=== PATIENT | female | born 1985 | race Caucasian/White ===

== ENCOUNTER 2023-02-25 07:38 | Outpatient (CLI) | payer OTHER, SELFPAY | END 2023-02-25 07:39 | disposition home or self-care (01) | LOC: NFLDREF 02-26 07:00 | PROVIDERS: PCP Family Medicine; Referring Provider Family Medicine; Visit Provider Family Medicine | DX: Z00.00 Encounter for general adult medical examination without abnormal findings (principal); Z13.6 Encounter for screening for cardiovascular disorders | CPT/HCPCS: 80053; 80061 ==

== ENCOUNTER 2024-02-02 07:43 | Outpatient (CLI) | payer OTHER, SELFPAY ==
--- NOTE | 2024-02-02 07:45 | MM_ITS ---
Patient: PARKER LIMON Facility:?[facility] Patient ID:?[id number] Site Patient ID:?[id number] Site :?1985 Study:?XRay-Breast Bilateral 3D W/CAD-02/02/2024 8:21:46 AM Ordering Physician:Ivy Final Report: DIAGNOSTIC BILATERAL BREAST MAMMOGRAM WITH COMPUTER-AIDED DETECTION AND TOMOSYNTHESIS RIGHT BREAST ULTRASOUND CLINICAL HISTORY: RIGHT breast lump. COMPARISON: None. TECHNIQUE: Digital BILATERAL mammogram in 4 projections with computer-aided detection. Tomosynthesis was used in this interpretation. Real-time ultrasound imaging of RIGHT breast with imaging documentation. BREAST COMPOSITION: The breasts are heterogeneously dense, which may obscure small masses. FINDINGS: 3D CC/MLO BILATERAL mammogram images submitted. No suspicious masses or architectural distortion. No suspicious calcifications or adenopathy. Targeted RIGHT breast ultrasound performed at 11 o`clock 6 cm from the nipple. Normal fibroglandular tissue without fibrocystic change or mass. IMPRESSION: No suspicious findings. RECOMMENDATIONS: Age-appropriate screening mammography. BI-RADS Category 2: Benign Results and recommendations discussed with the patient. A lay language report of this examination will be provided to the patient. Dictated by De Dolan MD @ 02/02/2024 8:42:08 AM/CRL:samuel PT/Dictated by: De Dolan MD @ 02/02/2024 8:42:00 AM Signed by:Jer Dolan MD @02/02/2024 11:22:51 AM (Electronic Signature)
--- OUTSIDE RECORDS SUMMARY | 2024-02-02 07:45 | XMS_ITS | Encounter Summary ---
Author Name Unknown Organization [facility] Address [address] [place] [address] Care Team Providers Care Mixing Machine Operator Name Role Phone Adrienne Montejo MD Primary Care Provider [phone] Encounter Details Date Type Department Care Team (Late st Contact Info) Description 10/20/2018 Refill Order [facility] 401 Otolaryngology 401 [facility] [place], [place] [phone] Dariel Cazares MD [address] [place], [place] [phone] Social History Tobacco Use Types Packs/Day Years Used Date Smoking Tobacco: Never Smokeless Tobacco: Never Alcohol Use Standard Drinks/Week Comments Yes 0 (1 standard drink = 0.6 oz pur e alcohol) 2-3 beer, wine, liquor Sex and Gender Information Value Date Recorded Sex Assigned at Not on file Gender Identity Not on file Sexual Orientation Not on file documented as of this encounter Plan of Treatment Upcoming Encounters Date Type Department Care Team (Late st Contact Info) Description 08/18/2024 3:30 PM PRODUCTION PLANNING MANAGER Appointment [facility] Audiology 401 [place], [place] [phone] Marie Javier AU.D. [address] [place], [place] [phone] 08/18/2024 4:00 PM PRODUCTION PLANNING MANAGER Appointment Specialty Center 401 Otolaryngology 401 [facility] [place] [address] Dariel Cazares MD [address] [place], [place] [phone] documented as of this encounter Visit Diagnoses Diagnosis Encounter for long-term (current) use of medications- Primary Encounter for long-term (current) use of other medications documented in this encounter Care Teams Mixing Machine Operator Relationship Specialty Start Date End Date Adrienne Montejo MD [address] [place] [address] PCP - General Family Practice 09/23/14 documented as of this encounter
--- OUTSIDE RECORDS SUMMARY | 2024-02-02 07:45 | XMS_ITS | Encounter Summary ---
Author Name Unknown Organization [facility] Address [address] [place] [address] Care Team Providers Care Creative Writing Professor Name Role Phone Adrienne Montejo MD Primary Care Provider [phone] Encounter Details Date Type Department Care Team (Late st Contact Info) Description 03/25/2012 Correspondence External to External, [place] [address] IMMUNZATION RECORD Social History Tobacco Use Types Packs/Day Years Used Date Smoking Tobacco: Never Smokeless Tobacco: Never Alcohol Use Standard Drinks/Week Comments Not Asked 0 (1 standard drink = 0.6 oz pur e alcohol) Sex and Gender Information Value Date Recorded Sex Assigned at Not on file Gender Identity Not on file Sexual Orientation Not on file documented as of this encounter Progress Notes * External, Provider - 03/25/2012 12:00 AM CDT documented in this encounter Plan of Treatment Upcoming Encounters Date Type Department Care Team (Late st Contact Info) Description 08/18/2024 3:30 PM ECONOMIC DEVELOPMENT DIRECTOR Appointment [facility] Audiology 401 [facility]. [place], [place] [phone] Marie Javier AU.D. 401 [place] [address] 08/18/2024 4:00 PM ECONOMIC DEVELOPMENT DIRECTOR Appointment Specialty Center 401 Otolaryngology 401 [facility]. [place], [place] [phone] Dariel Cazares MD 401 [place] [address] documented as of this encounter Visit Diagnoses Not on filedocumented in this encounter Care Teams Creative Writing Professor Relationship Specialty Start Date End Date Adrienne Montejo MD [address] [place] [address] PCP - General Family Practice 09/23/14 documented as of this encounter
--- OUTSIDE RECORDS SUMMARY | 2024-02-02 07:45 | XMS_ITS | Encounter Summary ---
Author Name Unknown Organization [facility] Address [address] [place] [address] Care Team Providers Care Bottle Tester Name Role Phone Adrienne Montejo MD Primary Care Provider [phone] Encounter Details Date Type Department Care Team (Late Contact Info) Description 12/08/2015 Correspondence [facility] Radiology [address] [place] [address] Radiology, Provider MRI SAFETY SHEET AND COMPATIBILITY FORM Social History Tobacco Use Types Packs/Day Years [...] Encounters Date Type Department Care Team (Late Contact Info) Description 08/18/2024 3:30 PM JTAC Appointment [facility] Audiology 401 [facility] [place] [address] Marie Javier AU.D. 401 [place] [address] 08/18/2024 4:00 PM JTAC Appointment Specialty Center 401 Otolaryngology 401 [facility] [place] [address] Dariel Cazares MD 401 [place] [address] documented as of this encounter Visit Diagnoses Not on filedocumented in this encounter Care Teams Bottle Tester Relationship Specialty Start Date End Date Adrienne Montejo MD [address] [place] [address] PCP - General Family Practice 09/23/14 documented as of this encounter
--- OUTSIDE RECORDS SUMMARY | 2024-02-02 07:45 | XMS_ITS | Encounter Summary ---
Author Name Unknown Organization [facility] Address [address] [address] Care Team Providers Care Gas Pit Worker Name Role Phone Adrienne Montejo MD Primary Care Provider [phone] Encounter Details Date Type Department Care Team (Late st Contact Info) Description 02/19/2017 Correspondence None No Primary/Referring, Phy PRE SERVICE NOTICE PAW Social History Tobacco Use Types Packs/Day Years [...] st Contact Info) Description 08/18/2024 3:30 PM BELLY ROLLER Appointment [facility] Audiology 401 [facility] [place] [address] Marie Javier AU.D. 401 [place] [address] 08/18/2024 4:00 PM BELLY ROLLER Appointment Specialty Center 401 Otolaryngology 401 [facility] [place] [address] Dariel Cazares MD [address] [place] [address] documented as of this encounter Visit Diagnoses Not on filedocumented in this encounter Care Teams Gas Pit Worker Relationship Specialty Start Date End Date Adirenne Montejo MD [address] [place] [address] PCP - General Family Practice 09/23/14 documented as of this encounter
--- OUTSIDE RECORDS SUMMARY | 2024-02-02 07:45 | XMS_ITS | Encounter Summary ---
Author Name Unknown Organization [facility] Address [address] [place] [address] Care Team Providers Care Md Physician Dermatologist Name Role Phone Adrienne Montejo MD Primary Care Provider [phone] Reason for Visit * Reason Comments [facility] Encounter Details Date Type Department Care Team (Late st Contact Info) Description 06/09/2017 Nurse Triage Careline [address] [place], [place] [address] Unassigned, Provider [address] [place] [address] [facility] Social History Tobacco Use Types Packs/Day Years Used Date Smoking Tobacco: Never Smokeless Tobacco: Never Alcohol Use Standard Drinks/Week Comments Yes 0 (1 standard drink = 0.6 oz pur e alcohol) 2-3 beer, wine, liquor Sex and Gender Information Value Date Recorded Sex Assigned at Not on file Gender Identity Not on file Sexual Orientation Not on file documented as of this encounter Nursing Notes * Zoya Branham RN - 06/09/2017 10:12 PM CDT Reason for Disposition ??? Taking water pill (i.e., diuretic) or heart medication (e.g., digoxin) Protocols used: HEART RATE AND HEARTBEAT [id number] * Zoya Branham RN - 06/09/2017 9:42 PM CDT Clinician actions requested: FRIEDA concern only- NO follow up needed Next steps: If patient not able to get online appointment she will call clinic Verified patient identity using 3 identifiers. Yes, with patient Situation/Background Last evening felt a couple times a heart fluttering feeling. This has happenedbefore and lasts for a few seconds. Then this morning and throughout the day I only notice it when I was not distracted by something else. When still or quiet then I notice it. I am on a diuretic formeniere's disease and have no BP problems. I have been on the diuretic since November this year. No fatigue. I feel fine otherwise. No chest pain of difficulty breathing. Denies dizziness or lightheadedness. Patient states she HR has been running in the low 60's and is regular. Reviewed with patient pertinent medical history Meniere's disease, otherwise healthy per patient. Reviewed with patient pertinent medications Diazide. Allergic:Azithromycin 10:[address] Natali Fernandez [place] head control clerk and consulted. Per Dr Fernandez, patient can be seen in clinic tomorrow. Called patient back and given Dr Fernandez' recommendation to be seen tomorrow in the clinic. Patient agrees with and is comfortable with plan. She will make appointment now online. She will call back to make appointment if none available online. Advised that CareLine is available 07/04 [phone] if you have any questions or need to speak with a nurse. * Benito Lopez - 06/09/2017 9:40 PM CDT Which care system or clinic is the patient normally seen at? [facility]. Situation: Medical:Pt is c/o heart flutters Plan:Call transferred directly to CareLine nurse. documented in this encounter Plan of Treatment Upcoming Encounters Date Type Department Care Team (Late st Contact Info) Description 08/18/2024 3:30 PM VP RESEARCH Appointment [facility] Audiology [address] [facility] [place] [address] Marie Javier AU.D. 401 [place] [address] 08/18/2024 4:00 PM VP RESEARCH Appointment Specialty Center [address] [place] [address]. [place], [place] [phone] Dariel Cazares MD [address] [place], [place] [phone] documented as of this encounter Visit Diagnoses Not on filedocumented in this encounter Care Teams Md Physician Dermatologist Relationship Specialty Start Date End Date Adrienne Montejo MD [address] [facility] [place] [address] PCP - General Family Practice 09/23/14 documented as of this encounter
--- OUTSIDE RECORDS SUMMARY | 2024-02-02 07:45 | XMS_ITS | Encounter Summary ---
Author Name Unknown Organization [facility] Address [address] [place] [address] Care Team Providers Care Electrical Designer Drafter Name Role Phone No Ref-Primary, Physician Primary Care Provider Gladys Valverde MD Unavailable [phone] Encounter Details Date Type Department Care Team (Late st Contact Info) Description 12/15/[address] [facility] [address] [facility] 4th [place] [address] Tiarra Campbell LPN Social History Tobacco Use Types Packs/Day Years Used Date Smoking Tobacco: Never Assessed Sex and Gender Information Value Date Recorded Sex Assigned at Not on file Gender Identity Not on file Sexual Orientation Not on file COVID-19 Exposure Response Date Recorded In the last month, have you been in contact with someone who was confirmed or suspected to have Coronavirus / COVID-19? No / Unsure 12/17/2019 11:14 AM CDT documented as of this encounter Plan of Treatment Not on file documented as of this encounter Visit Diagnoses Not on filedocumented in this encounter Care Teams Electrical Designer Drafter Relationship Specialty Start Date End Date No Ref-Primary, Physician PCP - General 10/13/19 Gladys Valverde MD [address] [place] [address] [address] [place] [address] Assigned Surgical Provider 07/07/20 documented as of this encounter
--- OUTSIDE RECORDS SUMMARY | 2024-02-02 07:45 | XMS_ITS | Encounter Summary ---
Author Name Unknown Organization [facility] Address [address] [place] [address] Care Team Providers Care Digital Project Coordinator Name Role Phone No Ref-Primary, Physician Primary Care Provider Gladys Valverde MD Unavailable [phone] Encounter Details Date Type Department Care Team (Late st Contact Info) Description 12/12/2020 MyC Medical Advice [facility] [address] 4[address] [place] [phone] Gladys Valverde MD [address] [address] Social History Tobacco Use Types Packs/Day Years Used Date Smoking Tobacco: Never Assessed Sex and Gender Information Value Date Recorded Sex Assigned at Not on file Gender Identity Not on file Sexual Orientation Not on file documented as of this encounter Plan of Treatment Not on file documented as of this encounter Visit Diagnoses Not on filedocumented in this encounter Care Teams Digital Project Coordinator Relationship Specialty Start Date End Date No Ref-Primary, Physician PCP - General 10/13/19 Gladys Valverde MD [address] [address] Assigned Surgical Provider 07/07/20 documented as of this encounter
--- OUTSIDE RECORDS SUMMARY | 2024-02-02 07:45 | XMS_ITS | Clinical Summary ---
Author Name Unknown Organization [facility] Address [address] [place] [address] Care Team Providers Care Waiter/Waitress Head Name Role Phone No Ref-Primary, Physician Primary Care Provider Allergies Active Allergy Reactions Criticality Noted Date Comments Azithromycin Dizziness 08/15/2009 Medications Medication Sig Dispensed Refills Start Date End Date Status Multiple Vitamins-Minerals (MULTIVITAMIN ADULT) TABS 11/13/2016 Active triamterene-HCTZ (DYAZIDE) 37.5-25 MG capsule TAKE 1 CAPSULE BY MOUTH DAILY 11/13/2016 Active Social History Tobacco Use Types Packs/Day Years Used Date Smoking Tobacco: Never Assessed Adolescent Education Answer Date Record ed Getting School Help Needed Not on file 06/07 Sex and Gender Information Value Date Recorded Sex Assigned at Not on file Gender Identity Not on file Sexual Orientation Not on file Last Filed Vital Signs Vital Sign Reading Time Taken Comments Blood Pressure - - Pulse - - Temperature - - Respiratory Rate - - Oxygen Saturation - - Inhaled Oxygen Concentration - - Weight 63.5 kg (140 lb) 12/17/2019 11:15 AM CDT Height 167.6 cm (5' 6) 12/17/2019 11:15 AM CDT Body Mass Index 22.6 12/17/2019 11:15 AM CDT Plan of Treatment Not on file Care Teams Waiter/Waitress Head Relationship Specialty Start Date End Date No Ref-Primary, Physician PCP - General 10/13/19
--- OUTSIDE RECORDS SUMMARY | 2024-02-02 07:45 | XMS_ITS | Encounter Summary ---
Author Name Unknown Organization [facility] Address [address] [place] [address] Care Team Providers Care Retanned Leather Roller Name Role Phone Adrienne Montejo MD Primary Care Provider [phone] Encounter Details Date Type Department Care Team (Late st Contact Info) Description 02/02/2019 Refill Order Specialty Center 401 Otolaryngology 401 [facility] [place], [place] [phone] Dariel Cazares MD 401 [place], [place] [phone] Social History Tobacco Use Types Packs/Day Years [...] st Contact Info) Description 08/18/2024 3:30 PM PREVENTIVE MEDICINE OFFICER Appointment [facility] Audiology 401 [place], [place] [phone] Marie Javier AU.D. [address] [place], [place] [phone] 08/18/2024 4:00 PM PREVENTIVE MEDICINE OFFICER Appointment Specialty Center 401 Otolaryngology 401 [facility] [place] [address] Dariel Cazares MD [address] [place], [place] [phone] documented as of this encounter Visit Diagnoses Diagnosis Encounter for long-term (current) use of medications- Primary Encounter for long-term (current) use of other medications documented in this encounter Care Teams Retanned Leather Roller Relationship Specialty Start Date End Date Adrienne Montejo MD [address] [place] [address] PCP - General Family Practice 09/23/14 documented as of this encounter
--- OUTSIDE RECORDS SUMMARY | 2024-02-02 07:45 | XMS_ITS | Clinical Summary ---
Author Name Unknown Organization [facility] Address [address] [place] [address] Care Team Providers Care Visual Coordinator Name Role Phone Adrienne Montejo MD Primary Care Provider [phone] Source Comments You are receiving this document as you are listed as the primary care provider,follow-up provider, or the patient has been referred to you for consultation.This is in compliance with the Medicare and[facility] EHR Incentive Program,which states Providers who transition their patient to another setting of careor provider of care or refers their patient to another provider of care shouldprovide summary care record for each transition of care or referral. [facility] Allergies Active Allergy Reactions Criticality Noted Date Comments Azithromycin Dizziness 03/20/2012 Medications Medication Sig Dispensed Refills Start Date End Date Status Sdirri-Ebtbdzsuk-Jnzg -Fish Oil ( + COMPLETE MULTI OR) Active OPZELURA 1.5 % cream Apply topically two times a day. 08/18/2023 Active clobetasol (TEMOVATE) 0.05 % cream Apply topically two times a day. 06/12/2023 Active Active Problems Problem Noted Date Diagnosed Date 12/13/2020 Currently in second trimester with unknown date of last menstrual period 12/13/2020 Fibrocystic breast changes of both breasts 05/19 Overview: Hx benign breast biopsy Cervical cancer screening 08/23/2016 Overview: 2012 NILM 2016 NILM ,neg HPV 31 y.o. Plan: Cotesting 08/2021 ; Pap test history Meniere disease Comments Yes Immunizations Name Administration Dates Next Due DT Ped 05/25/1991 DTP 06/30/1987, 6,03/15/1986, 986 Flu Vac (3+ yrs) 06/29/2010 Fluzone Qiv Multidose Vial 0 .25 (6-35 Mos) 06/30/2019,07/11/2018 HepA Adult (19+ yrs) 08/14/2009,01/06/2009 HepB Ped/Adol (0-18 yrs) 12/14/1996,06/22/1996,0 05/13/1996 IPV (Polio) 12/02/2008 Influenza IIV4 (Quadrivalent ) 0.5mL (38134) 06/10/2017,06/17/2016 JE (JE-VAX) 01/03/2009,12/09/2008,12/02/2008 MMR 05/13/1996,02/17/1987 MPSV4 (Menomune) 03/15/2004 OPV, Trivalent (Orimune or tOPV) 990,06/30/1987,07/11/1986, 986,01/13/1986 Rabies 01/27/2012, 2,07/27/2009, 009,01/06/2009,12/16/2008,12/09/2008 TB Skin Test (PPD) 12/02/2005,04/13/2004 Td (7+ yrs) 12/25/2018 Tdap 12/09/2008 Typhoid (Vivotif, Oral) 12/09/2008 Family History Medical History Relation Name Comments Stroke Maternal Grandfather Diabetes Maternal Grandmother Cancer, Breast Negative Family History Cancer, Colon Negative Family History Cataract Negative Family History Glaucoma Negative Family History Macular Degeneration Negative Family History Retinal Detachment Negative Family History Relation Name Status Comments Father Alive Mother Alive Maternal Grandfather Maternal Grandmother Paternal Grandfather Alive Paternal Grandmother Sister Alive Social History Tobacco Use Types Packs/Day Years Used Date Smoking Tobacco: Never Smokeless Tobacco: Never Alcohol Use Standard Drinks/Week Comments Yes 0 (1 standard drink = 0.6 oz pur e alcohol) 2-3 beer, wine, liquor Comments Yes Sex and Gender Information Value Date Recorded Sex Assigned at Not on file Gender Identity Not on file Sexual Orientation Not on file Last Filed Vital Signs Vital Sign Reading Time Taken Comments Blood Pressure 88/61 07/30/2019 8:29 AM WELDING MACHINE OPERATOR PLASMA ARC Pulse 86 07/30/2019 8:29 AM WELDING MACHINE OPERATOR PLASMA ARC Temperature 36.9 ??C (98.5 ??F) 07/30/2019 8:29 AM CS T Respiratory Rate 18 07/30/2019 8:29 AM WELDING MACHINE OPERATOR PLASMA ARC Oxygen Saturation - - Inhaled Oxygen Concentration - - Weight 63.5 kg (140 lb) 07/30/2019 8:29 AM WELDING MACHINE OPERATOR PLASMA ARC Height 167.6 cm (5' 6) 07/30/2019 8:29 AM WELDING MACHINE OPERATOR PLASMA ARC Body Mass Index 22.6 07/30/2019 8:29 AM WELDING MACHINE OPERATOR PLASMA ARC Plan of Treatment Upcoming Encounters Date Type Department Care Team (Late st Contact Info) Description 08/18/2024 3:30 PM WELDING MACHINE OPERATOR PLASMA ARC Appointment [facility] Specialty [place] [facility] [address] [place] [address]. [place], [place] [phone] Marie Javier AU.D. [address] [place] [phone] 08/18/2024 4:00 PM WELDING MACHINE OPERATOR PLASMA ARC Appointment Specialty Center [address] [place] [address] Dariel Cazares MD [address] [place], [place] [phone] Health Maintenance Due Date Last Done Comments Hep C Screening (Preventive Services) 1985 HIV Screening (Preventive Services) 2001 Adult Preventive Visit 05/19/2020 8, 08/19/2016, 11/24/2012 Cervical Cancer Screening 08/19/20212015, 11/24/2012, 11/24/2012 COVID-19 Vaccine ( season) 2023 06/01/2022, 07/22/2021, 01/09/2021, Additional history exists DTaP/Tdap/Td (9 - Tdap) 02/08/2031 02/09/20 21, 12/25/2018, 12/09/2008, Additional history exists Zoster/Shingles (1 of 2) 2035 HepB Completed 12/14/1996, 04/1996, 05/13/1996 MCV4 Aged Out 03/15/2004 No longer eligi ble based on patient's age to complete this topic IPV (Polio) Completed 12/02/2008, 04/16, 06/30/1987, Additional history exists HepA Completed 08/14/2009, 01/06/2009 Influenza Completed 07/01/2023, 06/16, 06/30/2021, Additional history exists HPV Vaccine Aged Out No longer eligi ble based on patient's age to complete this topic Hib Aged Out No longer eligi ble based on patient's age to complete this topic Pneumococcal Aged Out No longer eligi ble based on patient's age to complete this topic Procedures Procedure Name Priority Date/Time Associated Diagnosis Comments PAP TEST, ROUTINE Routine 08/19/2016 11: 13 AM WELDING MACHINE OPERATOR PLASMA ARC Screening for malignant neoplasm of cervix from Last 3 Months or Most Recently Relevant to Health Maintenance Results * Pap Test, Routine (08/19/2016 11:13 AM WELDING MACHINE OPERATOR PLASMA ARC) Cytology, Pap (NOTE) Road Crew Member Cytology Report Patient Name: MARIE LIMON Taken: 08/19/2016 Received: 08/19/2016 Reported: 08/27/2016 Physician(s): CLEOPATRA RANGEL ?Source of Specimen Pap Test, Routine Cervical/Endocervi catalina: ?Specimen Adequacy ?Satisfactory for evaluation. ??Endocervical component present. ? Final Cytologic Interpretation/Res ult NEGATIVE FOR INTRAEPITHELIAL LESION OR MALIGNANCY (NILM) ?? *Electronically Signed Out By JARRELL Grimm (ASCP)* JARRELL Grimm (ASCP) ? Pap Smear History Date of Last Menstrual Period: 08/09/2016 ?? Microscopic Description Microscopic examination is performed. [facility] Department of Pathology [address] [place] [id number] [facility] 08/19/2016 11:1 3 AM WELDING MACHINE OPERATOR PLASMA ARC 08/19/2016 6:15 PM WELDING MACHINE OPERATOR PLASMA ARC Cleopatra Rangel INSTRUCTIONAL TECHNOLOGY SPECIALIST, TELEPHOTO INSTALLER LAB_1 [facility] [phone] from Last 3 Months or Most Recently Relevant to Health Maintenance Care Teams Visual Coordinator Relationship Specialty Start Date End Date Adrienne Montejo MD [address] [place] [address] PCP - General Family Practice 09/23/14
--- OUTSIDE RECORDS SUMMARY | 2024-02-02 07:45 | XMS_ITS | Encounter Summary ---
Author Name Unknown Organization [facility] Address [address], [place] [address] Care Team Providers Care Barrel Filler Name Role Phone Adrienne Montejo MD Primary Care Provider [phone] Encounter Details Date Type Department Care Team (Late st Contact Info) Description 08/18/2012 Correspondence External to [facility] External, [place] [address] MEDICAL HISTORY Social History Tobacco Use Types Packs/Day Years [...] encounter Progress Notes * External, Provider - 08/18/2012 12:00 AM CST RTING LEAD documented in this encounter Plan of Treatment Upcoming Encounters Date Type Department Care Team (Late st Contact Info) Description 08/18/2024 3:30 PM REPORTING LEAD Appointment [facility] Audiology [address] [place] [address] Marie Javier AU.D. [address] [place] [address] 08/18/2024 4:00 PM REPORTING LEAD Appointment Specialty Center 401 Otolaryngology 401 [place] [address] Dariel Cazares MD [address] [place], [place] [phone] documented as of this encounter Visit Diagnoses Not on filedocumented in this encounter Care Teams Barrel Filler Relationship Specialty Start Date End Date Adrienne Montejo MD [address] [place] [address] PCP - General Family Practice 09/23/14 documented as of this encounter
--- OUTSIDE RECORDS SUMMARY | 2024-02-02 07:45 | XMS_ITS | Referral Summary ---
Author Name Unknown Organization [facility] Address [address] [place] [address] Care Team Providers Care Carrier Loader Name Role Phone No Ref-Primary, Physician Primary [...] of Treatment Not on file Care Teams Carrier Loader Relationship Specialty Start Date End Date No Ref-Primary, Physician PCP - General 10/13/19
--- OUTSIDE RECORDS SUMMARY | 2024-02-02 07:46 | XMS_ITS | Encounter Summary ---
Author Name Unknown Organization [facility] Address [address] [place] [address] Care Team Providers Care Store Lead Name Role Phone No Ref-Primary, Physician Primary Care Provider Gladys Valverde MD Unavailable [phone] Reason for Visit * Reason Onset Date Comments Referral 09/28/2019 DX: Meniere's Di sease Appointment 10/13/2019 New Pt Appt requ ested for Meniere's Disease Encounter Details Date Type Department Care Team (Late st Contact Info) Description 09/28/2019 Telephone [facility] Ear Nose and Throat [address] [facility] [address] 4[address] [place] [address] Gladys Valverde MD [address] [facility] [address] [place] [address] Referral (DX: Meniere's Disease); Appointment (New Pt Appt requested for Meniere's Disease) Social History Tobacco Use Types Packs/Day Years Used Date Smoking Tobacco: Never Assessed Sex and Gender Information Value Date Recorded Sex Assigned at Not on file Gender Identity Not on file Sexual Orientation Not on file documented as of this encounter Miscellaneous Notes * Telephone Encounter - Dorinda Tobias - 10/13/2019 1:02 PM CST [facility] Phone Message May a detailed message be left on voicemail: yes Reason for Call: Other: Please call Pt to schedule New Pt Appt for Meniere's Disease please Action Taken: Message routed to: [facility] ([facility] ENT CUTTER * Telephone Encounter - Gilbert Martinez - 10/07/2019 2:11 PM CST Referral and recs sent to [facility], original copy in community services coordinator rightfax folder. Recs are also in Care Everywhere- Amay CUTTER * Telephone Encounter - Gilma Bills - 09/28/2019 5:10 PM CST [facility] Call Center Phone Message May a detailed message be left on voicemail: yes Reason for Call: Other: DX: Meniere's Disease and being referred by Dr. Dariel Cazares at [facility]. Patient is contact Dr. Cazares to have referral and records faxed to [phone]. Also, patient stated she would like to be scheduled with Dr. Gladys Valverde. Please follow up with patient when referral and records are received. Thank you! Action Taken: Message routed to: [facility] ([facility]): Clinic Coord ENT Eye Dental CUTTER documented in this encounter Plan of Treatment Not on file documented as of this encounter Visit Diagnoses Not on filedocumented in this encounter Care Teams Store Lead Relationship Specialty Start Date End Date No Ref-Primary, Physician PCP - General 10/13/19 Gladys Valverde MD [address] [place] [address] [address] [place] [address] Assigned Surgical Provider 07/07/20 documented as of this encounter
--- OUTSIDE RECORDS SUMMARY | 2024-02-02 07:46 | XMS_ITS | Encounter Summary ---
Author Name Unknown Organization [facility] Address [address] [place] [address] Care Team Providers Care Carton Waxing Machine Operator Name Role Phone No Ref-Primary, Physician Primary Care Provider Gladys Valverde MD Unavailable [phone] Encounter Details Date Type Department Care Team (Late st Contact Info) Description 11/17/2019 MyC Medical Advice [facility] Ear Nose and Throat [address] [facility] [address] 4[address] [place] [address] Gladys Valverde MD [address] [place] [address] Social History Tobacco Use Types Packs/Day Years Used Date Smoking Tobacco: Never Assessed Sex and Gender Information Value Date Recorded Sex Assigned at Not on file Gender Identity Not on file Sexual Orientation Not on file documented as of this encounter Plan of Treatment Not on file documented as of this encounter Visit Diagnoses Not on filedocumented in this encounter Care Teams Carton Waxing Machine Operator Relationship Specialty Start Date End Date No Ref-Primary, Physician PCP - General 10/13/19 Gladys Valverde MD [address] [address] Assigned Surgical Provider 07/07/20 documented as of this encounter
--- NOTE | 2024-02-02 08:15 | US_ITS ---
Patient: PARKER LIMON Facility:?[facility] Patient ID:?[id number] Site Patient ID:?[id number] Site :?1985 Study:?US-Breast Right DSM TO READ-02/02/2024 8:15:03 AM Ordering Physician:?KATIA BENJAMIN Final Report: PLEASE SEE BILATERAL DIAGNOSTIC MAMMOGRAM OF SAME DAY. CRL:samuel PT/Dictated by: De Dolan MD @ 02/02/2024 8:42:00 AM Signed by:?De Dolan MD @02/02/2024 11:22:49 AM (Electronic Signature)
== END 2024-02-02 07:44 | disposition home or self-care (01) ==
LOC: MAMMO 07:43
PROVIDERS: PCP Family Medicine; Visit Provider Family Medicine
DX: N63.10 Unspecified lump in the right breast, unspecified quadrant (principal); R92.2 Inconclusive mammogram
CPT/HCPCS: 76642; 77066; G0279

== ENCOUNTER 2024-03-08 07:52 | Outpatient (CLI) | payer OTHER, SELFPAY ==
--- OUTSIDE RECORDS SUMMARY | 2024-03-10 05:44 | XMS_ITS | Encounter Summary ---
Author Organization [facility] Address [address] [place] [address] Care Team Providers Care Equipment Engineer Name Role Phone No Ref-Primary, Physician Primary Care Provider Gladys Valverde MD Unavailable [phone] Encounter Details Date Type Department Care Team (Late st Contact Info) Description 12/12/2020 MyC Medical Advice [facility] [address] [place] [address] Gladys Valverde MD [address] [address] Social History Tobacco Use Types [...] on filedocumented in this encounter Care Teams Equipment Engineer Relationship Specialty Start Date End Date No Ref-Primary, Physician PCP - General 10/13/19 Gladys Valverde MD [address] [address] Assigned Surgical Provider 07/07/20 documented as of this encounter
--- OUTSIDE RECORDS SUMMARY | 2024-03-10 05:44 | XMS_ITS | Encounter Summary ---
Author Organization [facility] Address [address] [place] [address] Care Team Providers Care Scholastic Aptitude Test Grader Name Role Phone No Ref-Primary, Physician Primary Care Provider Gladys Valverde MD Unavailable [phone] Encounter Details Date Type Department Care Team (Late st Contact Info) Description 11/17/2019 [facility] Medical Advice [facility] Ear Nose and Throat [address] [facility] [address] [place] [address] Gladys Valverde MD [address] [address] Social History Tobacco Use Types [...] on filedocumented in this encounter Care Teams Scholastic Aptitude Test Grader Relationship Specialty Start Date End Date No Ref-Primary, Physician PCP - General 10/13/19 Gladys Valverde MD [address] [address] Assigned Surgical Provider 07/07/20 documented as of this encounter
--- OUTSIDE RECORDS SUMMARY | 2024-03-10 05:44 | XMS_ITS | Referral Summary ---
Author Organization [facility] Address [address] [place] [address] Care Team Providers Care Platinum Smith Name Role Phone No Ref-Primary, Physician Primary [...] of Treatment Not on file Care Teams Platinum Smith Relationship Specialty Start Date End Date No Ref-Primary, Physician PCP - General 10/13/19
--- OUTSIDE RECORDS SUMMARY | 2024-03-10 05:44 | XMS_ITS | Encounter Summary ---
Author Organization [facility] Address [address] [place] [address] Care Team Providers Care Aerial Crop Duster Name Role Phone Adrienne Montejo MD Primary Care Provider [phone] Encounter Details Date Type Department Care Team (Late st Contact Info) Description 08/18/2012 Correspondence External to External, [place] [address] MEDICAL HISTORY Social History Tobacco Use Types [...] External, Provider - 08/18/2012 12:00 AM CST AUDITOR documented in this encounter Plan of Treatment Upcoming Encounters Date Type Department Care Team (Late st Contact Info) Description 08/18/2024 3:30 PM QA AUDITOR Appointment [facility] Audiology [address] [place] [address] Marie Javier AU.D. 401 [place] [address] 08/18/2024 4:00 PM QA AUDITOR Appointment [facility] 401 Otolaryngology [address] [facility]. [place], [place] [phone] Dariel Cazares MD 401 [place], [place] [phone] documented as of this encounter Visit Diagnoses Not on filedocumented in this encounter Care Teams Aerial Crop Duster Relationship Specialty Start Date End Date Adrienne Montejo MD [address] [place] [address] PCP - General Family Practice 09/23/14 documented as of this encounter
--- OUTSIDE RECORDS SUMMARY | 2024-03-10 05:44 | XMS_ITS | Encounter Summary ---
Author Organization [facility] Address [address], [place] [address] Care Team Providers Care Truck Technician Name Role Phone Adrienne Montejo MD Primary Care Provider [phone] Encounter Details Date Type Department Care Team (Late st Contact Info) Description 03/25/2012 Correspondence External to External, [place] [address] IMMUNZATION RECORD Social History Tobacco Use Types [...] st Contact Info) Description 08/18/2024 3:30 PM SANDWICH MAKER Appointment [facility] Audiology [address] [place] [address]. [place], [place] [phone] Marie Javier AU.D. [address] [place] [address] 08/18/2024 4:00 PM SANDWICH MAKER Appointment [facility] 401 Otolaryngology 401 [facility]. [place], [place] [phone] Dariel Cazares MD 401 [place], [place] [phone] documented as of this encounter Visit Diagnoses Not on filedocumented in this encounter Care Teams Truck Technician Relationship Specialty Start Date End Date Adrienne Montejo MD [address] [place] [address] PCP - General Family Practice 09/23/14 documented as of this encounter
--- OUTSIDE RECORDS SUMMARY | 2024-03-10 05:44 | XMS_ITS | Clinical Summary ---
Author Organization [facility] Address [address] [place] [address] Care Team Providers Care Road Packer Operator Name Role Phone Adrienne Montejo MD Primary Care Provider [phone] Source Comments You are receiving this document as you are listed as the primary care provider,follow-up provider, or the patient has been referred to you for consultation.This is in compliance with the Medicare and[facility] Hospital[facility] EHR Incentive Program,which states Providers who transition their patient to another setting of careor provider of care or refers their patient to another provider of care shouldprovide summary care record for each transition of care or referral. [facility] Allergies Active Allergy Reactions Criticality Noted Date Comments Azithromycin Dizziness 03/20/2012 Medications Medication Sig Dispensed Refills Start Date End Date Status Egrfey-Ldfzarnfv-Pxsv -Fish Oil ( + COMPLETE MULTI OR) [...] (Polio) 12/02/2008 Influenza IIV4 (Quadrivalent ) 0.5mL (86676) 06/10/2017,06/17/2016 JE (JE-VAX) 01/03/2009,12/09/2008,12/02/2008 MMR 05/13/1996,02/17/1987 MPSV4 [...] Comments Blood Pressure 88/61 07/30/2019 8:29 AM LAST CODE STRIPER Pulse 86 07/30/2019 8:29 AM LAST CODE STRIPER Temperature 36.9 ??C (98.5 ??F) 07/30/2019 8:29 AM CS T Respiratory Rate 18 07/30/2019 8:29 AM LAST CODE STRIPER Oxygen Saturation - - Inhaled Oxygen Concentration - - Weight 63.5 kg (140 lb) 07/30/2019 8:29 AM LAST CODE STRIPER Height 167.6 cm (5' 6) 07/30/2019 8:29 AM LAST CODE STRIPER Body Mass Index 22.6 07/30/2019 8:29 AM LAST CODE STRIPER Plan of Treatment Upcoming Encounters Date Type Department Care Team (Late st Contact Info) Description 08/18/2024 3:30 PM LAST CODE STRIPER Appointment [facility] Audiology [address] [place] [phone] Marie Javier AU.D. [address] [place] [phone] 08/18/2024 4:00 PM LAST CODE STRIPER Appointment [facility] [address] [place] [phone] Dariel Cazares MD 401 [place], [place] [phone] Health Maintenance Due Date Last Done Comments [...] TEST, ROUTINE Routine 08/19/2016 11: 13 AM LAST CODE STRIPER Screening for malignant neoplasm of cervix from Last 3 Months or Most Recently Relevant to Health Maintenance Results * Pap Test, Routine (08/19/2016 11:13 AM LAST CODE STRIPER) Cytology, Pap (NOTE) Sterile Supply Technician Cytology Report Patient Name: MARIE LIMON Taken: [...] ?? Microscopic Description Microscopic examination is performed. [facility] Department of Pathology [address] [place] [address] ??[id number] [facility] 08/19/2016 11:1 3 AM LAST CODE STRIPER 08/19/2016 6:15 PM LAST CODE STRIPER Cleopatra Rangel ELECTRONIC EQUIPMENT INSTALLER, ADDICTIONS COUNSELOR ASSISTANT LAB_1 [facility] [phone] from Last 3 Months or Most Recently Relevant to Health Maintenance Care Teams Road Packer Operator Relationship Specialty Start Date End Date Adrienne Montejo MD [address] [place] [address] PCP - General Family Practice 09/23/14
--- OUTSIDE RECORDS SUMMARY | 2024-03-10 05:44 | XMS_ITS | Encounter Summary ---
Author Organization [facility] Address [address] [place] [address] Care Team Providers Care Soa Architect Name Role Phone No Ref-Primary, Physician Primary Care Provider Gladys Valverde MD Unavailable [phone] Encounter Details Date Type Department Care Team (Late st Contact Info) Description 12/15/2019 [facility] Medical Advice [facility] Ear Nose and Throat [address] [address] Tiarra Campbell LPN Social History Tobacco [...] on filedocumented in this encounter Care Teams Soa Architect Relationship Specialty Start Date End Date No Ref-Primary, Physician PCP - General 10/13/19 Gladys Valverde MD 420 [facility] [address] [place], [place] [phone] Assigned Surgical Provider 07/07/20 documented as of this encounter
--- OUTSIDE RECORDS SUMMARY | 2024-03-10 05:44 | XMS_ITS | Encounter Summary ---
Author Organization [facility] Address [address] [address] Care Team Providers Care Cruller Maker Machine Name Role Phone Adrienne Montejo MD Primary Care Provider [phone] Encounter Details Date Type Department Care Team (Late Contact Info) Description 12/08/2015 Correspondence [facility] Radiology [address] [place] [address] Radiology, Provider MRI SAFETY SHEET AND COMPATIBILITY [...] st Contact Info) Description 08/18/2024 3:30 PM PATIENT SUPPORT TECH Appointment [facility] Audiology [address] [facility] [place] [address] Marie Javier AU.D. 401 [place] [address] 08/18/2024 4:00 PM PATIENT SUPPORT TECH Appointment [facility] 401 Otolaryngology [address] [facility] [place], [place] [phone] Dariel Cazares MD [address] [place] [address] documented as of this encounter Visit Diagnoses Not on filedocumented in this encounter Care Teams Cruller Maker Machine Relationship Specialty Start Date End Date Adrienne Montejo MD [address] [place] [address] PCP - General Family Practice 09/23/14 documented as of this encounter
--- OUTSIDE RECORDS SUMMARY | 2024-03-10 05:44 | XMS_ITS | Encounter Summary ---
Author Organization [facility] Address [address] [place] [address] Care Team Providers Care Heat Welder Plastics Name Role Phone Adrienne Montejo MD Primary Care Provider Reason for Visit * Reason Comments FLUTTERING HEART Encounter Details Date Type Department Care Team (Late st Contact Info) Description 06/09/2017 Nurse Triage Careline [address] [place], [place] [address] Unassigned, Provider [address] [place] [address] [facility] Social History Tobacco Use Types [...] digoxin) Protocols used: HEART RATE AND HEARTBEAT [id number] * Zoya Branham RN - 06/09/2017 9:42 [...] 10:[address] Natali Fernandez [place] nuclear station operator and consulted. Per Dr Fernandez, patient can be seen in clinic tomorrow. Called patient back and given Dr Fernandez' recommendation to be seen tomorrow in the clinic. Patient agrees with and is comfortable with plan. She will make appointment now online. She will call back to make appointment if none available online. Advised that CareLine is available 07/04 [phone] if you have any questions or need to speak with a nurse. * Benito Lopez - 06/09/2017 9:40 PM CDT Which care system or clinic is the patient normally seen at? [facility] Clinics. Situation: Medical:Pt is c/o heart flutters Plan:Call transferred directly to CareLine nurse. documented in this encounter Plan of Treatment Upcoming Encounters Date Type Department Care Team (Late st Contact Info) Description 08/18/2024 3:30 PM BOILERMAKING SUPERVISOR Appointment [facility] Audiology [address] [employer] [place] [address] Marie Javier AU.D. 401 [place] [address] 08/18/2024 4:00 PM BOILERMAKING SUPERVISOR Appointment [facility]ty [facility] [address] [place] [address]. [place], [place] [phone] Dariel Cazares MD 401 [place], [place] [phone] documented as of this encounter Visit Diagnoses Not on filedocumented in this encounter Care Teams Heat Welder Plastics Relationship Specialty Start Date End Date Adrienne Montejo MD [address] [place] [address] PCP - General Family Practice 09/23/14 documented as of this encounter
--- OUTSIDE RECORDS SUMMARY | 2024-03-10 05:44 | XMS_ITS | Encounter Summary ---
Author Organization [facility] Address [address], [place] [address] Care Team Providers Care Cyber Security Systems Engineer Name Role Phone Adrienne Montejo MD Primary Care Provider [phone] Encounter Details Date Type Department Care Team (Late st Contact Info) Description 02/02/2019 Refill Order [facility] 401 Otolaryngology 401 [place], [place] [phone] Dariel Cazares MD [address] [place], [place] [phone] Social History Tobacco Use Types Packs/Day Years [...] st Contact Info) Description 08/18/2024 3:30 PM RIVET SPINNER Appointment [facility] Audiology [address] [place], [place] [phone] Marie Javier AU.D. [address] [place], [place] [phone] 08/18/2024 4:00 PM RIVET SPINNER Appointment [facility]ty Center 401 Otolaryngology [address] [facility] [place], [place] [phone] Dariel Cazares MD [address] [place] [address] documented as of this encounter Visit Diagnoses Diagnosis Encounter for long-term (current) use of medications- Primary Encounter for long-term (current) use of other medications documented in this encounter Care Teams Cyber Security Systems Engineer Relationship Specialty Start Date End Date Adrienne Montejo MD [address] [place] [address] PCP - General Family Practice 09/23/14 documented as of this encounter
--- OUTSIDE RECORDS SUMMARY | 2024-03-10 05:44 | XMS_ITS | Encounter Summary ---
Author Organization [facility] Address [address], [place] [address] Care Team Providers Care Farmworker Vegetable Name Role Phone Adrienne Montejo MD Primary Care Provider [phone] Encounter Details Date Type Department Care Team (Late st Contact Info) Description 10/20/2018 Refill Order [facility] 401 Otolaryngology 401 [place], [place] [phone] Dariel Cazares MD [address] [place], [place] [phone] Social History Tobacco Use Types Packs/Day Years [...] st Contact Info) Description 08/18/2024 3:30 PM BRIM BUSTER Appointment [facility] Audiology [address] [place], [place] [phone] Marie Javier AU.D. [address] [place], [place] [phone] 08/18/2024 4:00 PM BRIM BUSTER Appointment Specialty Center 401 Otolaryngology 401 [facility] [place], [place] [phone] Dariel Cazares MD [address] [place] [address] documented as of this encounter Visit Diagnoses Diagnosis Encounter for long-term (current) use of medications- Primary Encounter for long-term (current) use of other medications documented in this encounter Care Teams Farmworker Vegetable Relationship Specialty Start Date End Date Adrienne Montejo MD [address] [place] [address] PCP - General Family Practice 09/23/14 documented as of this encounter
--- OUTSIDE RECORDS SUMMARY | 2024-03-10 05:44 | XMS_ITS | Encounter Summary ---
Author Organization [facility] Address [address], [place] [address] Care Team Providers Care Costume Design Teacher Name Role Phone Adrienne Montejo MD Primary Care Provider [phone] Encounter Details Date Type Department Care Team [...] st Contact Info) Description 08/18/2024 3:30 PM ACCOUNT GENERAL MANAGER Appointment [facility] Audiology [address] [place] [address] Marie Javier AU.D. [address] [place] [address] 08/18/2024 4:00 PM ACCOUNT GENERAL MANAGER Appointment Specialty Center 401 Otolaryngology [address] [place] [address] Dariel Cazares MD [address] [place] [address] documented as of this encounter Visit Diagnoses Not on filedocumented in this encounter Care Teams Costume Design Teacher Relationship Specialty Start Date End Date Adrienne Montejo MD [address] [place] [address] PCP - General Family Practice 09/23/14 documented as of this encounter
--- OUTSIDE RECORDS SUMMARY | 2024-03-10 05:44 | XMS_ITS | Clinical Summary ---
Author Organization [facility] Address [address] [place] [address] Care Team Providers Care Construction Safety Consultant Name Role Phone No Ref-Primary, Physician Primary [...] of Treatment Not on file Care Teams Construction Safety Consultant Relationship Specialty Start Date End Date No Ref-Primary, Physician PCP - General 10/13/19
--- OUTSIDE RECORDS SUMMARY | 2024-03-10 05:44 | XMS_ITS | Encounter Summary ---
Author Organization [facility] Address [address] [place] [address] Care Team Providers Care Grain Merchandising Manager Name Role Phone No Ref-Primary, Physician Primary Care Provider Gladys Valverde MD Unavailable [phone] Reason for Visit * Reason Onset Date Comments Referral 09/28/2019 DX: Meniere's Di sease Appointment 10/13/2019 New Pt Appt requ ested for Meniere's Disease Encounter Details Date Type Department Care Team (Late st Contact Info) Description 09/28/2019 Telephone [facility] Nose [facility] Th[facility]at [address] [facility] 4th [place] [address] Gladys Valverde MD [address] [address] Referral (DX: Meniere's Disease); Appointment (New [...] Message routed to: [facility] ([facility]): ENT HANDISE PLANNER * Telephone Encounter - Gilbert Martinez - 10/07/2019 2:11 PM CST Referral and recs sent to [facility], original copy in online content coordinator rightfax folder. Recs are also in Care Everywhere- Amay HANDISE PLANNER * Telephone Encounter - Gilma Bills - 09/28/2019 5:10 PM CST [facility] Call Center Phone Message May a detailed message be left on voicemail: yes Reason for Call: Other: DX: Meniere's Disease and being referred by Dr. Dariel Cazares at [facility]. Patient is contact Dr. Cazares to have referral and records faxed to [phone]. Also, patient stated she would like to be scheduled with Dr. Gladys Valverde. Please follow up with patient when referral and records are received. Thank you! Action Taken: Message routed to: [facility] ([facility]): Clinic Coord ENT Eye Dental HANDISE PLANNER documented in this encounter Plan of Treatment Not on file documented as of this encounter Visit Diagnoses Not on filedocumented in this encounter Care Teams Grain Merchandising Manager Relationship Specialty Start Date End Date No Ref-Primary, Physician PCP - General 10/13/19 Gladys Valverde MD [address] [place] [address] [address] [place] [address] Assigned Surgical Provider 07/07/20 documented as of this encounter
== END 2024-03-08 07:53 | disposition home or self-care (01) ==
LOC: NFLDREF 03-10 05:43
PROVIDERS: PCP Family Medicine; Referring Provider Family Medicine; Visit Provider Family Medicine
DX: H81.09 Meniere's disease, unspecified ear (principal); E78.5 Hyperlipidemia, unspecified
CPT/HCPCS: 80053; 80061; 84443

== ENCOUNTER 2024-03-31 16:22 | Emergency (ER) | payer OTHER, SELFPAY ==
[2024-03-31 16:30] VITALS: BP 113/70; PULSE 74; RESP 18; TEMP 36.6; O2SAT 99; BMI 26.6
--- NOTE | 2024-03-31 16:30 | ED_ITS ---
HPI - General Adult General Chief complaint: Unspecified Complaint, Adult Stated complaint: numbess L side of face Time Seen by Provider: 03/31/24 16:29 History of Present Illness HPI narrative: Reports left side facial numbness. Started at mouth now in cheek area. Had dull eye pain yesterday 38-year-old woman presenting to the emergency department with a concern of numbness in the left side of her face. She has not noticed any rashes. Does not have a loss of function. Was recommended to be evaluated in the emergency department. About a week and half ago had a sense of numbness somewhere between numb and tingling and feels like it is deep internal beginning just in the left side of the mental prominence. Today it seems to have progressed up to this zygoma. She has not noted any trauma here. She does note however that she has toddler indicating that she may have taken some bumps to the face. Has not noted any blisters. No recent fever. Was around somebody that got Bravo's palsy in the setting of COVID some weeks ago but otherwise she feels well. 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 She is not having any pain in her jaw. No neck issues. No lesions in her scalp. She says her face looks like herself in the mirror; normal. Does not get headaches. She did have some eye pain yesterday but this has resolved; as gestures it appears that this was bilateral. She think this was I strain from too much screen time. No diabetes or dyslipidemia Related Data Previous Rx's ?Medication ?Instructions ?Recorded nirmatrelvir 300 mg (150 mg See Rx Instructions PO .COMPLEX 04/23/24 x2)-ritonavir 100 mg tablet,dose #30 ea pack (Paxlovid) Allergies Allergy/AdvReac Type Severity Reaction Status Date / Time azithromycin Allergy Severe Dizziness Verified 03/11/24 09:49 Review of Systems Status of ROS: Reports: 6 or more systems reviewed and unremarkable except as noted in History and below [facility] Medical History Eczema ?L30.9 - Dermatitis, unspecified (ICD-10) Meniere's disease ?H81.09 - Meniere's disease, unspecified ear (ICD-10) Fibrocystic breast changes ?N60.19 - Diffuse cystic mastopathy of unspecified breast (ICD-10) Dyslipidemia ?E78.5 - Hyperlipidemia, unspecified (ICD-10) Chronic eczema of hand ?L30.9 - Dermatitis, unspecified (ICD-10) Asymmetrical sensorineural hearing loss ?H90.3 - Sensorineural hearing loss, bilateral (ICD-10) Surgical History Laceration of vagina with complication (04/23/21) ?S31.41XA - Laceration without foreign body of vagina and vulva, initial encounter (ICD-10) History of third molar tooth extraction (2000) ?K08.409 - Partial loss of teeth, unspecified cause, unspecified class (ICD- 10) History of removal of skin mole (2008) ?Z98.890 - Other specified postprocedural states (ICD-10) ?Z87.2 - Personal history of diseases of the skin and subcutaneous tissue (ICD-10) History of benign breast biopsy (2001) ?Z98.890 - Other specified postprocedural states (ICD-10) Family History Grandfather Diabetes Grandmother Diabetes Social History Narrative: . 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 Rare EtOH. No exercise. Nonsmoker What is your current living situation?: I presently have a place to live Problems where you live: no known problems In the past 12 months, utilities in danger of being shut off: no In the past 12 mos, have been you worried that your food would run out before you had money to buy more?: never true In the past 12 mos, the food you bought just didn't last and you didn't have money to buy more?: never true Smoking Status: Never smoker How often do you have a drink containing alcohol: never AUDIT-C Alcohol total score: 0 Non-prescribed substance use: denies use How often does anyone, including family, friends and others, physically hurt you : decline to answer How often does anyone, including family, friends and others, insult or talk down to you: decline to answer How often does anyone, including family, friends and others, threaten you with harm: decline to answer How often does anyone, including family, friends and others, scream or curse at you: decline to answer Little interest or pleasure in doing things: not at all Feeling down, depressed, or hopeless: not at all service: No Exam Narrative: Exam Narrative: Pleasant. NAD. Speaking fluidly. Cranial nerves 2-12 intact. There is no pain to palpation at the TMJ. Ear canals clear. No swellings about her face. Face generally symmetrical though subtly flattened left nasal labial fold versus the right. Oropharynx is unremarkable without swelling or tenderness to dental percussion. Dentition looks to be in good repair. Intact motor throughout her face. There is what looks like a recent pimple at the left inferior medial zygoma area. No surrounding swelling or inflammatory changes. Areas mentioned above subjectively appears to be stretching from the left mental prominence of to the left zygoma; just below this. Does not stretch over the bony jaw nor moved particularly medial toward the nose. Neck is supple without lymphadenopa thy. Full range of motion the neck. No swellings. Const: Vital Signs, click to edit/add: Vital Signs - 24 hr 03/31/24 16:30 Temperature 97.8 F Pulse Rate [Pulse Oximeter] 74 Respiratory Rate 18 Blood Pressure [Ri ght Upper Arm] 113/70 Pulse Oximetry 99 Oxygen Delivery Me thod Room Air Documenting provider has reviewed patient's vital signs: yes Course Vital Signs Vital signs: Initial Vital Signs Temperature 97.8 F 03/31/24 16:30 Temperature Source Temporal Artery Scan 03/31/24 16:30 Pulse Rate 74 03/31/24 16:30 Pulse Rhythm Regular 03/31/24 16:30 Respiratory Rate 18 03/31/24 16:30 Blood Pressure 113/70 03/31/24 16:30 Blood Pressure Mean 84 03/31/24 16:30 Blood Pressure Position Sitting 03/31/24 16:30 Pulse Oximetry 99 03/31/24 16:30 Oxygen Delivery Method Room Air 03/31/24 16:30 Vital Signs Temperature 97.8 F 03/31/24 16:30 Pulse Rate 74 03/31/24 16:30 Respiratory Rate 18 03/31/24 16:30 Blood Pressure 113/70 03/31/24 16:30 Pulse Oximetry 99 03/31/24 16:30 Oxygen Delivery Method Room Air 03/31/24 16:30 Temperature 97.8 F 03/31/24 16:30 Pulse Rate 74 03/31/24 16:30 Respiratory Rate 18 03/31/24 16:30 Blood Pressure 113/70 03/31/24 16:30 Pulse Oximetry 99 03/31/24 16:30 Oxygen Delivery Method Room Air 03/31/24 16:30 Medical Decision Making MDM Narrative Medical decision making narrative: I am not exactly sure what to make of this. Paresthesia that is very focused and of unclear etiology at this point. Will consult briefly with Neurology I think. Opinion upon consultation it is that this is likely peripheral issue. Unclear etiology though might be related to lesions as noted. See patient discharge plan discussion Medical Records Medical records reviewed: Yes I reviewed the patient's medical records Discharge Plan Discharge Clinical Impression: Paresthesia Patient Disposition: Home, Self-Care Condition: Stable Additional Instructions: Outbreak of lesions/blisters may be explanation for what is involving here. It does appear to be a peripheral phenomenon as opposed to central. Be seen for marked spread of numbness or focal motor weakness. Prescriptions: No Action Paxlovid 300 mg (150 mg x 2)-100 mg tablets,dose pack See Rx Instructions PO .COMPLEX Qty: 30 0RF Rx Instructions: take TWO 150 mg tablets of nirmatrelvir with ONE 100 mg tablet of ritonavir twice daily for 5 days PO Follow Up/Referrals: Mercedez Alarcon MD [Primary Care Provider] - Stand Alone Forms: [employer] Info Instructions
--- OUTSIDE RECORDS SUMMARY | 2024-03-31 16:52 | XMS_ITS | Clinical Summary ---
Author Organization [facility] Address [address] [place] [address] Care Team Providers Care Coal Picker Name Role Phone Adrienne Montejo MD Primary Care Provider [phone] Source Comments You are receiving this document as you are listed as the primary care provider,follow-up provider, or the patient has been referred to you for consultation.This is in compliance with the Medicare and[facility] EHR Incentive Program,which states Providers who transition their patient to another setting of careor provider of care or refers their patient to another provider of care shouldprovide summary care record for each transition of care or referral. [email or web address] Allergies Active Allergy Reactions Criticality Noted Date Comments Azithromycin Dizziness 03/20/2012 Medications Medication Sig Dispensed Refills Start Date End Date Status Qvywyy-Znekafkpd-Yzym -Fish Oil ( + COMPLETE MULTI OR) [...] (Polio) 12/02/2008 Influenza IIV4 (Quadrivalent ) 0.5mL (13091) 06/10/2017,06/17/2016 JE (JE-VAX) 01/03/2009,12/09/2008,12/02/2008 MMR 05/13/1996,02/17/1987 MPSV4 [...] Comments Blood Pressure 88/61 07/30/2019 8:29 AM WOMEN'S STUDIES LECTURER Pulse 86 07/30/2019 8:29 AM WOMEN'S STUDIES LECTURER Temperature 36.9 ??C (98.5 ??F) 07/30/2019 8:29 AM CS T Respiratory Rate 18 07/30/2019 8:29 AM WOMEN'S STUDIES LECTURER Oxygen Saturation - - Inhaled Oxygen Concentration - - Weight 63.5 kg (140 lb) 07/30/2019 8:29 AM WOMEN'S STUDIES LECTURER Height 167.6 cm (5' 6) 07/30/2019 8:29 AM WOMEN'S STUDIES LECTURER Body Mass Index 22.6 07/30/2019 8:29 AM WOMEN'S STUDIES LECTURER Plan of Treatment Upcoming Encounters Date Type Department Care Team (Late st Contact Info) Description 08/18/2024 3:30 PM WOMEN'S STUDIES LECTURER [facility]ment [facility] [address] [place] [phone] Marie Javier AU.D. [address] [place] [phone] 08/18/2024 4:00 PM WOMEN'S STUDIES LECTURER Appointment [facility] [address] [place] [address] [phone] Dariel Cazares MD [address] [place], [place] [phone] Health Maintenance Due Date Last Done Comments Hep C Screening (Preventive Services) 1985 HIV Screening (Preventive Services) 2001 Adult Preventive Visit 05/19/2020 8, 08/19/2016, 11/24/2012 Cervical Cancer Screening 08/19/20212015, 11/24/2012, 11/24/2012 COVID-19 Vaccine ( season) 2023 06/01/2022, 07/22/2021, 01/09/2021, Additional history exists Influenza (#1) 2024 07/01/2023, 06/16, 06/30/2021, Additional history exists DTaP/Tdap/Td (9 - Tdap) 02/08/2031 02/09/20, 12/25/2018, 12/09/2008, Additional history exists Zoster/Shingles (1 of 2) 2035 HepB Completed 12/14/1996, 04/1996, 05/13/1996 MCV4 Aged Out 03/15/2004 No longer eligi ble based on patient's age to complete this topic IPV (Polio) Completed 12/02/2008, 04/16, 06/30/1987, Additional history exists HepA Completed 08/14/2009, 01/06/2009 HPV Vaccine Aged Out No longer eligi ble based on patient's age to complete this topic Hib Aged Out No longer eligi ble based on patient's age to complete this topic Pneumococcal Aged Out No longer eligi ble based on patient's age to complete this topic Procedures Procedure Name Priority Date/Time Associated Diagnosis Comments PAP TEST, ROUTINE Routine 08/19/2016 11: 13 AM WOMEN'S STUDIES LECTURER Screening for malignant neoplasm of cervix from Last 3 Months or Most Recently Relevant to Health Maintenance Results * Pap Test, Routine (08/19/2016 11:13 AM WOMEN'S STUDIES LECTURER) Cytology, Pap (NOTE) Cardroom Manager Cytology Report Patient Name: MARIE LIMON Taken: [...] ?? Microscopic Description Microscopic examination is performed. [facility] Department of Pathology [address] [place] [id number] [facility] 08/19/2016 11:1 3 AM WOMEN'S STUDIES LECTURER 08/19/2016 6:15 PM WOMEN'S STUDIES LECTURER Cleopatra Rangel HYDRAMATIC SPECIALIST, AUTOMOBILE INSURANCE CLAIM EXAMINER LAB_1 [facility] [phone] from Last 3 Months or Most Recently Relevant to Health Maintenance Care Teams Coal Picker Relationship Specialty Start Date End Date Adrienne Montejo MD [address] [address] PCP - General Family Practice 09/23/14
--- OUTSIDE RECORDS SUMMARY | 2024-03-31 16:52 | XMS_ITS | Encounter Summary ---
Author Organization [facility] Address [address], [place] [address] Care Team Providers Care Director Of Rehabilitative Services Name Role Phone Adrienne Montejo MD Primary Care Provider [phone] Encounter Details Date Type Department Care Team (Late st Contact Info) Description 02/02/2019 Refill Order [facility] 401 Otolaryngology 401 [place], [place] [phone] Dariel Cazares MD [address] [place], [place] [phone] Social History Tobacco Use Types Packs/Day Years [...] st Contact Info) Description 08/18/2024 3:30 PM CANDY BAR ATTENDANT Appointment [facility] Audiology [address] [place], [place] [phone] Marie Javier AU.D. [address] [place], [place] [phone] 08/18/2024 4:00 PM CANDY BAR ATTENDANT Appointment [facility]ty [facility] 401 Otolaryngology 401 [facility]. [phone] Dariel Cazares MD [address] [place] [address] documented as of this encounter Visit Diagnoses Diagnosis Encounter for long-term (current) use of medications- Primary Encounter for long-term (current) use of other medications documented in this encounter Care Teams Director Of Rehabilitative Services Relationship Specialty Start Date End Date Adrienne Montejo MD [address] [place] [address] PCP - General Family Practice 09/23/14 documented as of this encounter
--- OUTSIDE RECORDS SUMMARY | 2024-03-31 16:52 | XMS_ITS | Encounter Summary ---
Author Organization [facility] Address [address] [place] [address] Care Team Providers Care Teleprinter Installer Name Role Phone Adrienne Montejo MD Primary Care Provider [phone] Encounter Details Date Type Department Care Team (Late st Contact Info) Description 08/18/2012 Correspondence External to External, [place] [address] MEDICAL HISTORY Social History Tobacco Use Types [...] External, Provider - 08/18/2012 12:00 AM CST H MACHINE OPERATOR documented in this encounter Plan of Treatment Upcoming Encounters Date Type Department Care Team (Late st Contact Info) Description 08/18/2024 3:30 PM NOTCH MACHINE OPERATOR Appointment [facility] Audiology 401 [facility] [place] [address] Marie Javier AU.D. [address] [place] [address] 08/18/2024 4:00 PM NOTCH MACHINE OPERATOR Appointment Specialty Center 401 Otolaryngology 401 [facility] [place], [place] [phone] Dariel Cazares MD [address] [place], [place] [phone] documented as of this encounter Visit Diagnoses Not on filedocumented in this encounter Care Teams Teleprinter Installer Relationship Specialty Start Date End Date Adrinene Montejo MD [address] [place] [address] PCP - General Family Practice 09/23/14 documented as of this encounter
--- OUTSIDE RECORDS SUMMARY | 2024-03-31 16:52 | XMS_ITS | Encounter Summary ---
Author [facility] Address [address] [place] [address] Care Team Providers Care Tax Auditor Name Role Phone Adrienne Montejo MD Primary Care Provider [phone] Reason for Visit * Reason Comments [facility] Encounter Details Date Type Department Care Team (Late st Contact Info) Description 06/09/2017 Nurse Triage Careline [address] [place] [address] Unassigned, Provider [address] [place] [address] [facility] Social History Tobacco Use Types [...] digoxin) Protocols used: HEART RATE AND HEARTBEAT [id number] * Zoya Branham RN - 06/09/2017 9:42 [...] 10:[address] Natali Fernandez [place] sales representative consultant and consulted. Per Dr Fernandez, patient can be seen in clinic tomorrow. Called patient back and given Dr Fernandez' recommendation to be seen tomorrow in the clinic. Patient agrees with and is comfortable with plan. She will make appointment now online. She will call back to make appointment if none available online. Advised that CareLine is available 07/04 [phone] if you have any questions or need to speak with a nurse. * Benito Lopez - 06/09/2017 9:40 PM CDT Which care system or clinic is the patient normally seen at? [facility] Clinics. Situation: Medical:Pt is c/o heart flutters Plan:Call transferred directly to CareLine nurse. documented in this encounter Plan of Treatment Upcoming Encounters Date Type Department Care Team (Late st Contact Info) Description 08/18/2024 3:30 PM PAINTER BOTTOM Appointment Audiology [address] [facility] [place] [address] Marie Javier AU.D. [address] [place] [address] 08/18/2024 4:00 PM PAINTER BOTTOM Appointment [facility]ty [facility] [address] [place] [address]. [place], [place] [phone] Dariel Cazares MD [address] [place], [place] [phone] documented as of this encounter Visit Diagnoses Not on filedocumented in this encounter Care Teams Tax Auditor Relationship Specialty Start Date End Date Adrienne Montejo MD [address] [place] [address] PCP - General Family Practice 09/23/14 documented as of this encounter
--- OUTSIDE RECORDS SUMMARY | 2024-03-31 16:52 | XMS_ITS | Encounter Summary ---
Author Organization [facility] Address [address], [place] [address] Care Team Providers Care Superintendent Power Name Role Phone Adrienne Montejo MD Primary Care Provider [phone] Encounter Details Date Type Department Care Team [...] st Contact Info) Description 08/18/2024 3:30 PM TANK CAR LOADER Appointment [facility] Audiology 401 [facility] [place] [address] Marie Javier AU.D. [address] [place] [address] 08/18/2024 4:00 PM TANK CAR LOADER Appointment Specialty Center 401 Otolaryngology [address] [facility] [place] [address] Dariel Cazares MD [address] [place] [address] documented as of this encounter Visit Diagnoses Not on filedocumented in this encounter Care Teams Superintendent Power Relationship Specialty Start Date End Date Adrienne Montejo MD [address] [place] [address] PCP - General Family Practice 09/23/14 documented as of this encounter
--- OUTSIDE RECORDS SUMMARY | 2024-03-31 16:52 | XMS_ITS | Encounter Summary ---
Author Organization [facility] Address [address], [place] [address] Care Team Providers Care Hospitality Services Manager Name Role Phone Adrienne Montejo MD Primary Care Provider [phone] Encounter Details Date Type Department Care Team (Late st Contact Info) Description 10/20/2018 Refill Order [facility] 401 Otolaryngology 401 [place], [place] [phone] Dariel Cazares MD [address] [place], [place] [phone] Social History Tobacco Use Types Packs/Day Years [...] st Contact Info) Description 08/18/2024 3:30 PM BARK PEELER Appointment [facility] Audiology [address] [place], [place] [phone] Marie Javier AU.D. [address] [place], [place] [phone] 08/18/2024 4:00 PM BARK PEELER Appointment Specialty Center 401 Otolaryngology 401 [facility] [place], [place] [phone] Dariel Cazares MD [address] [place] [address] documented as of this encounter Visit Diagnoses Diagnosis Encounter for long-term (current) use of medications- Primary Encounter for long-term (current) use of other medications documented in this encounter Care Teams Hospitality Services Manager Relationship Specialty Start Date End Date Adrienne Montejo MD [address] [place] [address] PCP - General Family Practice 09/23/14 documented as of this encounter
--- OUTSIDE RECORDS SUMMARY | 2024-03-31 16:52 | XMS_ITS | Encounter Summary ---
Author Organization [facility] Address [address], [place] [address] Care Team Providers Care Latex Ribbon Machine Operator Name Role Phone Adrienne Montejo MD Primary Care Provider [phone] Encounter Details Date Type Department Care Team (Late Contact Info) Description 12/08/2015 Correspondence [facility] Radiology [address] [place] [address] Radiology, Provider MRI SAFETY SHEET AND COMPATIBILITY [...] st Contact Info) Description 08/18/2024 3:30 PM ASSISTANT CASINO SHIFT MANAGER Appointment [facility] Audiology 401 [facility] [place] [address] Marie Javier AU.D. [address] [place] [address] 08/18/2024 4:00 PM ASSISTANT CASINO SHIFT MANAGER Appointment Specialty Center 401 Otolaryngology 401 [facility]. [place], [place] [phone] Dariel Cazares MD [address] [place] [address] documented as of this encounter Visit Diagnoses Not on filedocumented in this encounter Care Teams Latex Ribbon Machine Operator Relationship Specialty Start Date End Date Adrienne Montejo MD [address] [place] [address] PCP - General Family Practice 09/23/14 documented as of this encounter
--- OUTSIDE RECORDS SUMMARY | 2024-03-31 16:53 | XMS_ITS | Encounter Summary ---
Author Organization [facility] Address [address] [place] [address] Care Team Providers Care Can Line Operator Name Role Phone No Ref-Primary, Physician Primary Care Provider Gladys Valverde MD Unavailable [phone] Encounter Details Date Type Department Care Team (Late st Contact Info) Description 12/15/2019 [facility] Medical Advice [facility] Throat [address] [address] Tiarra Campbell LPN Social History [...] on filedocumented in this encounter Care Teams Can Line Operator Relationship Specialty Start Date End Date No Ref-Primary, Physician PCP - General 10/13/19 Gladys Valverde MD [address] [facility] [address] [place], [place] [phone] Assigned Surgical Provider 07/07/20 documented as of this encounter
--- OUTSIDE RECORDS SUMMARY | 2024-03-31 16:53 | XMS_ITS | Clinical Summary ---
Author Organization [facility] [facility] Address [address] [place] [address] Care Team Providers Care Grass Farm Laborer Name Role Phone No Ref-Primary, Physician Primary [...] of Treatment Not on file Care Teams Grass Farm Laborer Relationship Specialty Start Date End Date No Ref-Primary, Physician PCP - General 10/13/19
--- OUTSIDE RECORDS SUMMARY | 2024-03-31 16:53 | XMS_ITS | Referral Summary ---
Author Organization [facility] Address [address] [place] [address] Care Team Providers Care Furniture Upholsterer Apprentice Name Role Phone No Ref-Primary, Physician Primary [...] of Treatment Not on file Care Teams Furniture Upholsterer Apprentice Relationship Specialty Start Date End Date No Ref-Primary, Physician PCP - General 10/13/19
--- OUTSIDE RECORDS SUMMARY | 2024-03-31 16:53 | XMS_ITS | Encounter Summary ---
Author Organization [facility] Address [address] [place] [address] Care Team Providers Care Continuing Education Instructor Name Role Phone No Ref-Primary, Physician Primary Care Provider Gladys Valverde MD Unavailable [phone] Reason for Visit * Reason Onset Date Comments Referral 09/28/2019 DX: Meniere's Di sease Appointment 10/13/2019 New Pt Appt requ ested for Meniere's Disease Encounter Details Date Type Department Care Team (Late st Contact Info) Description 09/28/2019 Telephone [facility] [address] [facility] 4th [place] [address] Gladys Valverde MD [address] [address] Referral (DX: Meniere's Disease); Appointment [...] Message routed to: [facility] ([facility]): ENT INSPECTOR * Telephone Encounter - Gilbert Martinez - 10/07/2019 2:11 PM CST Referral and recs sent to [facility], original copy in music coordinator rightfax folder. Recs are also in Care Everywhere- Amay INSPECTOR * Telephone Encounter - Gilma Bills - 09/28/2019 5:10 PM CST [facility] Call Center Phone Message May a detailed message be left on voicemail: yes Reason for Call: Other: DX: Meniere's Disease and being referred by Dr. Dariel Cazares at [facility]. Patient is contact Dr. Cazares to have referral and records faxed to [phone]. Also, patient stated she would like to be scheduled with Dr. Gladys Valverde. Please follow up with patient when referral and records are received. Thank you! Action Taken: Message routed to: [facility] [place] ([facility]): Clinic Coord ENT Eye Dental INSPECTOR documented in this encounter Plan of Treatment Not on file documented as of this encounter Visit Diagnoses Not on filedocumented in this encounter Care Teams Continuing Education Instructor Relationship Specialty Start Date End Date No Ref-Primary, Physician PCP - General 10/13/19 Gladys Valverde MD [address] [place] [address] [address] [place] [address] Assigned Surgical Provider 07/07/20 documented as of this encounter
--- OUTSIDE RECORDS SUMMARY | 2024-03-31 16:53 | XMS_ITS | Encounter Summary ---
Author Organization [facility] Address [address] [place] [address] Care Team Providers Care Rn Chronic Name Role Phone No Ref-Primary, Physician Primary Care Provider Gladys Valverde MD Unavailable [phone] Encounter Details Date Type Department Care Team (Late st Contact Info) Description 12/12/2020 [facility] Medical Advice [facility] [address] 4th [place] [address] Gladys Valverde MD [address] [address] Social History Tobacco Use Types [...] on filedocumented in this encounter Care Teams Rn Chronic Relationship Specialty Start Date End Date No Ref-Primary, Physician PCP - General 10/13/19 Gladys Valverde MD [address] [address] Assigned Surgical Provider 07/07/20 documented as of this encounter
--- OUTSIDE RECORDS SUMMARY | 2024-03-31 16:53 | XMS_ITS | Encounter Summary ---
Author Organization [facility] Address [address], [place] [address] Care Team Providers Care Compliance Paralegal Name Role Phone Adrienne Montejo MD Primary Care Provider [phone] Encounter Details Date Type Department Care Team (Late st Contact Info) Description 03/25/2012 Correspondence External to External, [place] [address] IMMUNZATION RECORD Social History Tobacco Use Types [...] st Contact Info) Description 08/18/2024 3:30 PM OVERCOILER Appointment [facility] [address] [place] [address]. [place], [place] [id number] Marie Javier AU.D. [address] [place] [address] 08/18/2024 4:00 PM OVERCOILER Appointment [facility] [address] Ot[facility]ology [address] [facility]. [place], [place] [id number] Dariel Cazares MD [address] [place], [place] [id number] documented as of this encounter Visit Diagnoses Not on filedocumented in this encounter Care Teams Compliance Paralegal Relationship Specialty Start Date End Date Adrienne Montejo MD [address] [place] [address] PCP - General Family Practice 09/23/14 documented as of this encounter
--- OUTSIDE RECORDS SUMMARY | 2024-03-31 16:53 | XMS_ITS | Encounter Summary ---
Author Organization [facility] Address [address] [place] [address] Care Team Providers Care Sueding Machine Tender Name Role Phone No Ref-Primary, Physician Primary Care Provider Gladys Valverde MD Unavailable [phone] Encounter Details Date Type Department Care Team (Late st Contact Info) Description 11/17/2019 [facility] Medical Advice [facility] N[facility] Th[facility] [address] [facility] [address]th [place] [address] Gladys Valverde MD [address] [address] Social History Tobacco Use Types [...] on filedocumented in this encounter Care Teams Sueding Machine Tender Relationship Specialty Start Date End Date No Ref-Primary, Physician PCP - General 10/13/19 Gladys Valverde MD [address] [address] Assigned Surgical Provider 07/07/20 documented as of this encounter
== END 2024-03-31 17:27 | disposition home or self-care (01) ==
PROVIDERS: Emergency Provider Family Medicine; PCP Family Medicine
DX: R20.2 Paresthesia of skin (principal)
CPT/HCPCS: 99283; 99284

== ENCOUNTER 2025-03-15 11:02 | Outpatient (CLI) | payer BC, SELFPAY | END 2025-03-15 11:03 | disposition home or self-care (01) | LOC: NFLDREF 11:03 | PROVIDERS: PCP Family Medicine; Visit Provider Family Medicine | DX: E61.1 Iron deficiency (principal); E78.5 Hyperlipidemia, unspecified; R53.83 Other fatigue | CPT/HCPCS: 80053; 80061; 82728 ==

== ENCOUNTER 2025-08-04 09:06 | Outpatient (CLI) | payer BC, SELFPAY ==
--- NOTE | 2025-08-04 09:15 | CRLHL7_ITS ---
For Patients: As a result of the Cures Act, medical imaging exams and procedure reports are released immediately into your electronic medical record. You may view this report before your referring provider. If you have questions, please contact your health care provider. INDICATION: BILATERAL SCREENING MAMMOGRAM, ASYMPTOMATIC 40 Y/O FEMALE COMPARISON: 02/02/2024 TECHNIQUE: Digital mammogram in CC and MLO projections including computer-aided detection (CAD) and tomosynthesis. BREAST COMPOSITION: The breasts are heterogeneously dense, which may obscure small masses. FINDINGS: No suspicious findings. ASSESSMENT: BI-RADS 2 Benign RECOMMENDATION: Annual screening mammogram. A lay language report of this examination will be provided to the patient. Dictated by: De Dolan MD @ 08/04/2025 10:09:14 (Electronically Signed)
== END 2025-08-04 09:07 | disposition home or self-care (01) ==
LOC: MAMMO 09:07
PROVIDERS: PCP Family Medicine; Visit Provider Family Medicine
DX: Z12.31 Encounter for screening mammogram for malignant neoplasm of breast (principal); R92.333 Mammographic heterogeneous density, bilateral breasts
CPT/HCPCS: 77063; 77067